=== PATIENT | female | born 1990 | race Caucasian/White ===

== ENCOUNTER 2018-06-16 08:40 | Emergency (ER) | payer OTHER ==
[~2018-06-16] VITALS: Ht 154.9 cm; Wt 47.6 kg
[2018-06-16 08:58] VITALS: BP 133/96
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
[2018-06-16] MEDS ORDERED: Meclizine 25mg tab ORAL ONE (09:15)
--- NOTE | 2018-06-16 09:45 | Diagnostic Imaging Report ---
Indications: Head trauma, pain, dizziness and nausea Technique: Spiral acquisitions obtained through the brain. Angled axial and coronal 5 x 5 mm slices were reconstructed. Total dose length product 1301.66 mGycm. CTDI vol(s) 70.38 mGy. Dose reduction achieved using automated exposure control Comparison: None. Findings: There is a left parietal scalp contusion. No underlying calvarial fracture demonstrated. No acute intracranial hemorrhage or edema, mass effect, nor midline shift. Normal bass-white differentiation. Visualized orbits and sinuses are unremarkable. The mastoids are clear. Impression: Evidence of left parietal scalp soft tissue injury Negative for acute intracranial bleed or mass effect The CT scanner at [facility] is accredited by the [employer] and the scans are performed using protocols designed to limit radiation exposure to as low as reasonably achievable to attain images of sufficient resolution adequate for diagnostic evaluation.
[2018-06-16] MEDS ORDERED: ZOFRAN4 M3 ORAL (09:51)
[2018-06-16] MEDS ORDERED: MECLIZINE HCL25 MG ORAL (09:51)
[2018-06-16 10:00] VITALS: BP 128/85
== END 2018-06-16 10:01 | disposition home or self-care (01) ==
LOC: EMR 09:13
DX: S06.0X0A Concussion without loss of consciousness, initial encounter (principal); W17.89XA Other fall from one level to another, initial encounter; Y93.89 Activity, other specified; Y92.9 Unspecified place or not applicable; Z88.6 Allergy status to analgesic agent; Z88.2 Allergy status to sulfonamides
CPT/HCPCS: 70450; 99284